=== PATIENT | male | born 1960 | race Caucasian/White ===

== ENCOUNTER → 2020-03-09 | Outpatient (CLI) | payer BC ==
--- NOTE | 2020-03-09 17:36 | P.STRESS ---
- Stress Test Note Stress Test Results/Findings: Exam Performed: stress test Exam Date: 03/09/20 Reason for Exam: Chest Pain Height: 5 ft 10 in Weight: 87.09 kg Protocol: Miguel Stage: 4 Duration of Exercise: 11:30 Resting Heart Rate: 46 Resting Blood Pressure: 135/94 Maximum Achieved Heart Rate: 150 Maximum Achieved Blood Pressure: 212/87 85% PMHR: 135 100% PMHR: 159 METS: 12.1 Technologist Comment: Stress Test Results/Findings: Baseline heart rate 46 beats a minute, Baseline blood pressure 135/94 mmHg Patient exercised on a Miguel protocol for 11 minutes 30 seconds achieving a peak heart rate of 150 beats a minute. Hypertensive response to exercise. Blood pressure 212/87 mmHg There was no ECG ms for ischemia No arrhythmias are noted Impression Excellent exercise capacity Hypertensive response No ECG evidence of ischemia No arrhythmias
== END | disposition home or self-care (01) ==
LOC: RADNMMAIN 02-27 08:37
PROVIDERS: ATTEND Family Medicine
DX: I10 Essential (primary) hypertension (principal); E78.5 Hyperlipidemia, unspecified
CPT/HCPCS: 93017

== ENCOUNTER → 2020-03-11 | Outpatient (CLI) | payer BC ==
--- NOTE | 2020-03-12 20:00 | ECHOF ---
Referral Reason:[id number] (primary) hypertension E78.5 MEASUREMENTS -------- HEIGHT: 177.8 cm WEIGHT: 87.1 kg BP: 154/82 IVSd: 1.1 cm (0.6 - 1.1) LVIDd: 4.4 cm (3.9 - 5.3) LVPWd: 1.1 cm (0.6 - 1.1) IVSs: 1.7 cm LVIDs: 3.1 cm LVPWs: 1.7 cm LA Diam: 3.5 cm (2.7 - 3.8) RVIDd: 3.3 cm (< 3.3) LAESV Index (A-L): 21.02 ml/m Ao Diam: 3.3 cm (2.0 - 3.7) AV Cusp: 1.9 cm (1.5 - 2.6) EPSS: 0.7 cm MV E Chris: 0.95 m/s MV DecT: 210 ms MV A Chris: 0.81 m/s MV E/A Ratio: 1.18 RAP: 5.00 mmHg RVSP: 23.52 mmHg MV EF SLOPE: 86.79 mm/s (70 - 150) MV EXCURSION: 16.22 mm (> 18.000) FINDINGS -------- Sinus rhythm. This was a technically good study. The left ventricular size is normal. There is borderline concentric left ventricular hypertrophy. Overall left ventricular systolic function is normal with, an EF between 60 - 65 %. The right ventricle is mildly enlarged. Normal LA size by volume 22+/-6 ml/m2. The right atrium is normal in size. Interatrial and interventricular septum intact. The aortic valve is trileaflet and appears structurally normal. Mild mitral regurgitation is present. Mild tricuspid regurgitation present. Right ventricular systolic pressure is normal at < 35 mmHg. There is no pulmonic regurgitation present. The aortic root size is normal. Normal inferior vena cava with normal inspiratory collapse consistent with estimated right atrial pre ssure of 5 mmHg. There is no pericardial effusion. CONCLUSIONS -------- 1. The left ventricular size is normal. 2. There is borderline concentric left ventricular hypertrophy. 3. Overall left ventricular systolic function is normal with, an EF between 60 - 65 %. 4. The right ventricle is mildly enlarged. 5. Normal LA size by volume 22+/-6 ml/m2. 6. The aortic valve is trileaflet and appears structurally normal. 7. Mild mitral regurgitation is present. 8. Mild tricuspid regurgitation present. 9. There is no pericardial effusion. STOCKROOM COORDINATOR: MARK Rojas
== END | disposition home or self-care (01) ==
LOC: RADECHMAIN 10:45
PROVIDERS: ATTEND Family Medicine
DX: E78.5 Hyperlipidemia, unspecified (principal); I10 Essential (primary) hypertension
CPT/HCPCS: 93306

== ENCOUNTER → 2020-12-15 | Outpatient (CLI) | payer BC ==
--- NOTE | 2020-12-15 18:43 | CONS ---
CONSULTATION REASON FOR CONSULTATION: Sleep apnea. 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 This was a concern that was raised by his who has noted that the patient is stopping breathing on multiple occasions at night and he is having loud snoring. The patient has occasional arousing from loud snoring. He does have nocturia. He does have some occasional grinding of the teeth. He wakes up with a dry mouth and he is waking up tired and sleepy during the day. He is going to bed around 9 p.m., wakes up at 6 a.m. in the morning. Averaging around 7 hours of sleep. His current Saint Joe score is at 12. He prefers to sleep on his side, although he is able to sleep on his back. He wakes up at least 2-3 times in the middle of the night and he is able to generate sleep without any major difficulties. No substance abuse. Drinks a few beers at nighttime. No recent weight gain. No sleep walking. No sleep talking. No new violent behavior at nighttime while asleep. No nocturnal anxiety or panic attacks. He has occasional anxiety. PAST MEDICAL HISTORY: Positive for hypertension, hyperlipidemia and acid reflux. PAST SURGICAL HISTORY: Negative. DRUG ALLERGIES: Not known. OUTPATIENT MEDICATION LIST: Includes omeprazole 20 mg p.o. daily, Lexapro 10 mg p.o. daily, amlodipine 10 mg p.o. daily, Lipitor 1 tablet a day. SOCIAL HISTORY: Nonsmoker. No history of alcohol. No history of IV drugs. FAMILY HISTORY: Two of his brothers have obstructive sleep apnea and they have been treated with CPAP therapy. REVIEW OF SYSTEMS: Fourteen-point review of system was done and positive findings are mentioned in the history of present illness. Of significance is the absence of any sleepwalking and sleep talking and the absence of any panic attacks. No palpitations. He has occasional heartburn, not occurring at nighttime. No sleep attacks. No history of any motor vehicle accident because of feeling drowsy or sleepy. No sleep paralysis. No hallucinations. No cataplexy. PHYSICAL EXAMINATION: VITAL SIGNS: BP is 149/84, pulse 73, respirations 16, temperature 97.3, saturation 97% on room air. BMI 29.1. Saint Joe score is 12. Neck size 17.5 inches. Weight is 202 pounds. GENERAL APPEARANCE: Calm and comfortable. Head: Atraumatic, normocephalic. NECK: Supple. Mallampati class 4. Uvula is not seen. Soft palate is quite anterior and low. Tongue is slightly enlarged. LUNGS: Clear to auscultation. HEART: Heart sounds are regular rate and rhythm. Normal S1, S2. No S3, S4. No murmurs. ABDOMEN: Soft, nontender. No organomegaly. EXTREMITIES: No edema. No cyanosis or clubbing. IMPRESSION: 1. Suspect obstructive sleep apnea, currently under investigation. 2. Loud snoring along with witnessed apneas. 3. Chronic fatigue and sleepiness Saint Joe score of 12. 4. Hypertension. 5. Hyperlipidemia. 6. Acid reflux. PLAN: 1. Home sleep study. 2. Encourage weight loss. 3. Sleep hygiene measures are in general appropriate. 4. We will review the sleep study results and will make further recommendations based on the findings. 5. He is interested in CPAP therapy should sleep apnea has been demonstrated in his sleep study. MMODL / IJN: [id number] /
== END ==
LOC: SLEEP 13:44
PROVIDERS: ATTEND Internal Medicine Critical Care Medicine
DX: G47.30 Sleep apnea, unspecified (principal); I10 Essential (primary) hypertension; K21.9 Gastro-esophageal reflux disease without esophagitis; E78.5 Hyperlipidemia, unspecified; R53.82 Chronic fatigue, unspecified
CPT/HCPCS: 99211

== ENCOUNTER → 2021-06-22 | Outpatient (CLI) | payer BC ==
--- NOTE | 2021-06-22 17:42 | PN ---
PROGRESS NOTE Sixto is 60 with a recent diagnosis of severe obstructive sleep apnea. I diagnosed this patient with having severe LANDON with an AHI of 49 and diagnosis was established based on home sleep study that was done on 12/29/2020. This is my first encounter with the patient post treatment. The patient is feeling great. He is feeling much more refreshed. His sleep quality has improved considerably while being on CPAP therapy and continues to benefit from the treatment. He is currently using a ResMed APAP unit with a pressure minimum of 5, maximum of 20 and he is using a HighlightCam Vitera medium-sized fullface mask. He is currently humidity at 5 and he has a regular tubing. Based on a 30-day compliance data, the patient has been averaging around 8.7 hours of CPAP use per night and CPAP use for more than 4 hours is 100%. Average pressure delivered by the machine is at 12.7. Leak is in order of 2 L/minute and AHI is down to 4.5. Central apnea-hypopnea index is at 3.2. He has no complaints. His Hat[place]chubbee score is currently at 4. REVIEW OF SYSTEMS: Fourteen-point review of system was done. No other complaints otherwise for now. His snoring has subsided. He is waking up refreshed and alert. No nocturia. PHYSICAL EXAMINATION: Vital signs: BP is 143/77, pulse 58, respirations 16, temperature 97.5. Hat[place]chubbee score is at 4. Saturation 97% on room air. Weight is 210. General appearance: Calm and comfortable. Head is atraumatic, normocephalic. Neck: Supple no nodes supple. There is no JVD. No goiter or neck masses. Lungs: Clear to auscultation. Heart: Heart sounds are regular rate and rhythm. Normal S1, S2. No S3, S4. No murmurs. Abdomen: Soft, nontender. No organomegaly. Extremities: No edema. No cyanosis or clubbing. Neurologic: Awake and alert. There is no focal neurological deficits. IMPRESSION: 1. Severe symptomatic obstructive sleep apnea with an AHI of 49. The patient has been successfully treated with an APAP. 2. Hypersomnia, improved. Hatchechubbee score is down to 4. 3. Loud snoring, recovered. 4. Hypertension. 5. Hyperlipidemia. 6. Acid reflux. PLAN: 1. Continue APAP therapy at the same level of pressure. 2. Offer the patient a climate line and gradually drop the humidity. 3. Compliance data was checked. Numbers look great. Average pressure delivered by the machine around 12.7 and the patient will be kept on an APAP mode. 4. Continue Vitera medium-size full face mask and see me back in a year's time in followup, earlier if needed. Treatment is successful and the patient is quite content and happy with the progress and clinical response. MMODL / IJN: [id number] / RYAN
== END ==
LOC: SLEEP 14:00
PROVIDERS: ATTEND Internal Medicine Critical Care Medicine
DX: G47.33 Obstructive sleep apnea (adult) (pediatric) (principal); I10 Essential (primary) hypertension; E78.5 Hyperlipidemia, unspecified; K21.9 Gastro-esophageal reflux disease without esophagitis

== ENCOUNTER → 2022-12-06 | Outpatient (CLI) | payer BC ==
--- NOTE | 2022-12-06 16:33 | P.PN ---
Progress Note - Text Progress Note Date: 12/06/22 58-year-old male patient coming in to see me regarding his obstructive sleep apnea. The patient is known to me and the patient is known to have severe LANDON with an AHI of 49 and the patient remains on CPAP therapy. The patient is utilizing APAP pressures of 5/20 cm of water. The patient is reminded very compliant to CPAP therapy. He continues to use a Simplus small size full facemask. I checked the compliance data on this patient and based on elevated has been collected between 11/06/2022 and 12/05/2022, the patient has been averaging around 6 hours and 55 minutes of CPAP use per night. His compliancy for the machine usage has been in the order of 100%. He has achieved more than 4 hours 97% of the time. Based on the data, his AHI is down to 1.9. Leaks are minimal at 4 L/m and his P90 5 percentile pressure is in order of 12.7 cm of water. No congestion heart failure. No myocardial infarction. No strokes. No cardiac arrhythmias. No major hypersomnia or sleepiness. Is still working in construction. BP is 150/77, pulse is 54, respirations 16 and the temperature is 98.1 and the weight is 189 pounds. Canon score is at 8 The patient appeared well nourished and normally developed. Vital signs as documented. Head exam is unremarkable. No scleral icterus or corneal arcus noted. Neck is without jugular venous distension, thyromegaly, or carotid bruits. Carotid upstrokes are brisk bilaterally. Lungs are clear to auscultation and percussion. Cardiac exam reveals the PMI to be normally sized and situated. Rhythm is regular. First and second heart sounds normal. No murmurs, rubs or gallops. Abdominal exam reveals normal bowel sounds, no masses, no organomegaly and no aortic enlargement. Extremities are nonedematous and both femoral and pedal pulses are normal.Examination of the skin revealed no evidence of significant rashes, suspicious appearing nevi or other concerning lesions.Neurologically, the patient is awake and alert and the patient does not have any focal neurological deficit. Cranial nerves are essentially intact. Assessment Obstructive sleep apnea, severe with an AHI of 49, undergoing successful CPAP therapy Chronic hypersomnia, improved Hypertension Hyperlipidemia Acid reflux Plan Continue CPAP therapy same pressure settings pressures of 5/20 cm of water Patient has lost weight Maintain good sleep hygiene measures Maintain regular sleep schedule Continue to follow CPAP supplies were refilled
== END ==
LOC: SLEEP 15:34
PROVIDERS: ATTEND Internal Medicine Critical Care Medicine
DX: G47.33 Obstructive sleep apnea (adult) (pediatric) (principal); I10 Essential (primary) hypertension; E78.5 Hyperlipidemia, unspecified; K21.9 Gastro-esophageal reflux disease without esophagitis; Z99.89 Dependence on other enabling machines and devices
CPT/HCPCS: 99212

== ENCOUNTER 2023-12-19 17:22 | Observation (INO) | payer MEDICARE, BC ==
[2023-12-19 17:28] VITALS: TEMP 97.7
[2023-12-19 17:50] LABS: Basophils % (A) 1 %; Eosinophils # (A) 0.2 k/uL (0-0.7); Eosinophils % (A) 2 %; HCT 47.2 % (39.0-53.0); Lymphocytes % (A) 30 %; MCH 32.1 pg (25.0-35.0); MCHC 31.8 g/dL (31.0-37.0); MCV 100.9 fL (80.0-100.0); Mean Platelet Volume 7.5; Monocytes # (A) 0.7 k/uL (0-1.0); Monocytes % (A) 10 %; Neutrophils # (A) 3.6 k/uL (1.3-7.7); Neutrophils % (A) 54 %; Platelet Count 263 k/uL (150-450); RBC 4.67 m/uL (4.30-5.90); RDW 12.4 % (11.5-15.5); WBC 6.6 k/uL (3.8-10.6)
[2023-12-19 18:01] LABS: ALT 33 U/L (4-49); AST 28 U/L (17-59); African American GFR (CKD) >90 (>60 ml/min/1.73 sqM); Albumin 4.2 g/dL (3.5-5.0); Alkaline Phosphatase 87 U/L (38-126); Anion Gap 5 mmol/L; Blood Urea Nitrogen 20 mg/dL (9-20); Calcium 8.9 mg/dL (8.4-10.2); Carbon Dioxide 29 mmol/L (22-30); Chloride 107 mmol/L (98-107); Glucose 102 mg/dL (74-99); Non-African American GFR(CKD) 89 (>60 ml/min/1.73 sqM); Potassium 4.8 mmol/L (3.5-5.1); Sodium 141 mmol/L (137-145); Total Bilirubin 0.5 mg/dL (0.2-1.3); Total Protein 7.2 g/dL (6.3-8.2)
[2023-12-19 18:04] LABS: Partial Thromboplastin Time 23.6 sec (22.0-30.0); Prothrombin Time 10.7 sec (10.0-12.5)
--- NOTE | 2023-12-19 18:12 | XR ---
EXAMINATION TYPE: XR chest 2V DATE OF EXAM: 12/19/2023 COMPARISON: None HISTORY: 63-year-old male with chest pain TECHNIQUE: PA and lateral views FINDINGS: Heart normal size. Aorta and pulmonary vasculature within normal limits. Mild central peribronchial c uffing. No consolidation or pleural effusion. IMPRESSION: Consider bronchitis or asthma. Otherwise, no acute process seen.
--- NOTE | 2023-12-19 18:50 | ED ---
General Adult HPI - General Chief complaint: Chest Pain Stated complaint: Chest Pain,Sob Time Seen by Provider: 12/19/23 18:35 Source: patient, RN notes reviewed, old records reviewed Mode of arrival: ambulatory Limitations: no limitations - History of Present Illness Initial comments: 63-year-old male with past medical history significant for high blood pressure high cholesterol. Patient states for the last week he has been having some discomfort in his chest and his back. Patient states it radiates down his arm a little bit. Patient states he is also noticed occasionally being somewhat short of breath. Patient does not describe it as sharp or severe but states it is pretty constant it will fluctuate in intensity throughout the week. Patient is not associated with exertion. Patient denies any fever chills or cough. Patient denies any abdominal pain patient has nausea vomiting diarrhea. Patient denies diaphoresis. Patient [place] any swelling to legs or calf tenderness. - Related Data Allergies Allergy/AdvReac Type Severity Reaction Status Date / Time No Known Allergies Allergy Verified 12/19/23 17:25 Review of Systems ROS Statement: Those systems with pertinent positive or pertinent negative responses have been documented in the HPI. ROS Other: All systems not noted in ROS Statement are negative. Past Medical History Past Medical History: GERD/Reflux, Hyperlipidemia, Hypertension Past Surgical History: No Surgical Hx Reported Smoking Status: Never smoker Past Alcohol Use History: None Reported Past Drug Use History: None Reported General Exam - General Exam Comments Initial Comments: GENERAL: Patient is well-developed and well-nourished. Patient is nontoxic and well- hydrated and is in mild distress. ENT: Neck is soft and supple. No significant lymphadenopathy is noted. Oropharynx is clear. Moist mucous membranes. Neck has full range of motion without eliciting any pain. EYES: The sclera were anicteric and conjunctiva were pink and moist. Extraocular movements were intact and pupils were equal round and reactive to light. Eyelids were unremarkable. PULMONARY: Unlabored respirations. Good breath sounds bilaterally. No audible rales rhonchi or wheezing was noted. CARDIOVASCULAR: There is a regular rate and rhythm without any murmurs gallops or rubs. ABDOMEN: Soft and nontender with normal bowel sounds. SKIN: Skin is clear with no lesions or rashes and otherwise unremarkable. NEUROLOGIC: Patient is alert and oriented x3. Cranial nerves II through XII are grossly intact. Motor and sensory are also intact. Normal speech, volume and content. Symmetrical smile. MUSCULOSKELETAL: Normal extremities with adequate strength and full range of motion. LYMPHATICS: No significant lymphadenopathy is noted PSYCHIATRIC: Normal psychiatric evaluation. Limitations: no limitations Course Vital Signs 12/19/23 12/19/23 17:23 18:20 Temperature 97.7 F Pulse Rate 59 L 56 L Respiratory 20 18 Rate Blood Pressure 194/81 154/96 O2 Sat by Pulse 99 100 Oximetry Medical Decision Making - Medical Decision Making EKG is interpreted by myself. EKG shows a sinus bradycardia 51 bpm parables 160 QRS 154 QT interval is 482 QTc is 458. Patient EKG shows a right bundle branch block. Was pt. sent in by a medical professional or institution (, PA, DIRECTOR BIOMEDICAL ENGINEERING, urgent care, hospital, or retirement...) When possible be specific @ -No Did you speak to anyone other than the patient for history (EMS, parent, family, police, friend...)? What history was obtained from this source @ -No Did you review nursing and triage notes (agree or disagree)? Why? @ -I reviewed and agree with nursing and triage notes Were old charts reviewed (outside hosp., previous admission, EMS record, old EKG, old radiological studies, urgent care reports/EKG's, retirement records)? Report findings @ -No old charts were reviewed Differential Diagnosis (chest pain, altered mental status, abdominal pain women, abdominal pain men, vaginal bleeding, weakness, fever, dyspnea, syncope, headache, dizziness, GI bleed, back pain, seizure, CVA, palpatations, mental health, musculoskeletal)? @ -Differential Chest Pain: Stable Angina, Unstable Angina, STEMI, NSTEMI Aortic Dissection, Pneumothorax, Musculoskeletal, Esophageal Spasm GERD, Cholecystitis, Pancreatitis, Zoster, this is not meant to be an all-inclusive list. EKG interpreted by me (3pts min.). @ -As above X-rays interpreted by me (1pt min.). @ -Chest x-ray shows no acute pulm CT interpreted by me (1pt min.). @ -90 U/S interpreted by me (1pt. min.). @ -None done What testing was considered but not performed or refused? (CT, X-rays, U/S, labs)? Why? @ -None What meds were considered but not given or refused? Why? @ -None Did you discuss the management of the patient with other professionals (professionals i.e. DrKaro, PA, DIRECTOR BIOMEDICAL ENGINEERING, lab, RT, psych nurse, psychiatric social worker supervisor, wire winding machine operator, teacher, driver's license reviewing officer, counseling case manager)? Give summary @ -I spoke with Dr. Zamudio patient initially was can leave AMA but decided to stay. Was smoking cessation discussed for >3mins.? @ -No Was critical care preformed (if so, how long)? @ -No Were there social determinants of health that impacted care today? How? (Homelessness, low income, unemployed, alcoholism, drug addiction, transportation, low edu. Level, literacy, decrease access to med. care, intermediate, rehab)? @ -No Was there de-escalation of care discussed even if they declined (Discuss DNR or withdrawal of care, Hospice)? DNR status @ -No What co-morbidities impacted this encounter? (DM, HTN, Smoking, COPD, CAD, Cancer, CVA, ARF, Chemo, Hep., AIDS, mental health diagnosis, sleep apnea, morbid obesity)? @ -None Was patient admitted / discharged? Hospital course, mention meds given and route, prescriptions, significant lab abnormalities, going to OR and other pertinent info. @ -Patient continued to have chest pain throughout his stay. Patient's lab work came back within normal range. Dr. Zamudio was contacted and he agreed to admit the patient admit the patient with admitting orders and consulted cardiology. Patient got an aspirin as well as Nitropaste and will stay overnight Undiagnosed new problem with uncertain prognosis? @ -No Drug Therapy requiring intensive monitoring for toxicity (Heparin, Nitro, Insulin, Cardizem)? @ -No Were any procedures done? @ -No Diagnosis/symptom? @ -Chest pain Acute, or Chronic, or Acute on Chronic? @ -Acute Uncomplicated (without systemic symptoms) or Complicated (systemic symptoms)? @ -Complicated Side effects of treatment? @ -No Exacerbation, Progression, or Severe Exacerbation? @ -No Poses a threat to life or bodily function? How? (Chest pain, USA, MO, pneumonia, PE, COPD, DKA, ARF, appy, cholecystitis, CVA, Diverticulitis, Homicidal, Suicidal, threat to staff... and all critical care pts) @ -Yes this could lead to an MO and endorgan dysfunction or - Lab Data Result diagrams: 05/14/24 17:26 12/19/23 17:26 Lab Results 12/19/23 12/19/23 12/19/23 Range/Units 17:26 17:26 17:26 WBC 6.6 (3.8-10.6) k/uL RBC 4.67 (4.30-5.90) m/uL Hgb 15.0 (13.0-17.5) gm/dL Hct 47.2 (39.0-53.0) % MCV 100.9 H (80.0-100.0) fL MCH 32.1 (25.0-35.0) pg MCHC 31.8 (31.0-37.0) g/dL RDW 12.4 (11.5-15.5) % Plt Count 263 (150-450) k/uL MPV 7.5 Neutrophils % 54 % Lymphocytes % 30 % Monocytes % 10 % Eosinophils % 2 % Basophils % 1 % Neutrophils # 3.6 (1.3-7.7) k/uL Lymphocytes # 2.0 (1.0-4.8) k/uL Monocytes # 0.7 (0-1.0) k/uL Eosinophils # 0.2 (0-0.7) k/uL Basophils # 0.0 (0-0.2) k/uL PT 10.7 (10.0-12.5) sec INR 1.0 (<1.2) APTT 23.6 (22.0-30.0) sec Sodium 141 (137-145) mmol/L Potassium 4.8 (3.5-5.1) mmol/L Chloride 107 (98-107) mmol/L Carbon Dioxide 29 (22-30) mmol/L Anion Gap 5 mmol/L BUN 20 (9-20) mg/dL Creatinine 0.90 (0.66-1.25) mg/dL Est GFR (CKD-EPI)AfAm >90 (>60 ml/min/1.73 sqM) Est GFR (CKD-EPI)NonAf 89 (>60 ml/min/1.73 sqM) Glucose 102 H (74-99) mg/dL Calcium 8.9 (8.4-10.2) mg/dL Magnesium 2.0 (1.6-2.3) mg/dL Total Bilirubin 0.5 (0.2-1.3) mg/dL AST 28 (17-59) U/L ALT 33 (4-49) U/L Alkaline Phosphatase 87 (38-126) U/L Troponin I (0.000-0.034) ng/mL Total Protein 7.2 (6.3-8.2) g/dL Albumin 4.2 (3.5-5.0) g/dL 12/19/23 Range/Units 17:26 WBC (3.8-10.6) k/uL RBC (4.30-5.90) m/uL Hgb (13.0-17.5) gm/dL Hct (39.0-53.0) % MCV (80.0-100.0) fL MCH (25.0-35.0) pg MCHC (31.0-37.0) g/dL RDW (11.5-15.5) % Plt Count (150-450) k/uL MPV Neutrophils % % Lymphocytes % % Monocytes % % Eosinophils % % Basophils % % Neutrophils # (1.3-7.7) k/uL Lymphocytes # (1.0-4.8) k/uL Monocytes # (0-1.0) k/uL Eosinophils # (0-0.7) k/uL Basophils # (0-0.2) k/uL PT (10.0-12.5) sec INR (<1.2) APTT (22.0-30.0) sec Sodium (137-145) mmol/L Potassium (3.5-5.1) mmol/L Chloride (98-107) mmol/L Carbon Dioxide (22-30) mmol/L Anion Gap mmol/L BUN (9-20) mg/dL Creatinine (0.66-1.25) mg/dL Est GFR (CKD-EPI)AfAm (>60 ml/min/1.73 sqM) Est GFR (CKD-EPI)NonAf (>60 ml/min/1.73 sqM) Glucose (74-99) mg/dL Calcium (8.4-10.2) mg/dL Magnesium (1.6-2.3) mg/dL Total Bilirubin (0.2-1.3) mg/dL AST (17-59) U/L ALT (4-49) U/L Alkaline Phosphatase (38-126) U/L Troponin I <0.012 (0.000-0.034) ng/mL Total Protein (6.3-8.2) g/dL Albumin (3.5-5.0) g/dL Disposition Clinical Impression: Chest pain Disposition: ADMITTED IP TO THIS HOSP Is patient prescribed a controlled substance at d/c from ED?: No Referrals: Bertin Zamudio DO [Primary Care Provider] - 1-2 days Time of Disposition: 19:52
[2023-12-19] MEDS ORDERED: NITROGLYCERIN SL TABS 0.4 MG TAB SUBLINGUAL PRN (20:40)
[2023-12-19] MEDS: ASPIRIN 325 MG TAB PO STA (20:41)
[2023-12-19] MEDS: ASPIRIN 81 MG PO STA (21:00)
[2023-12-20] MEDS: NITROGLYCERIN OINT 1 INCH/GM PACKET TOPICAL SCH (01:54)
[2023-12-20] MEDS: amLODIPine 5 MG TAB PO STA (09:10)
[2023-12-20] MEDS: ASPIRIN 325 MG TAB PO SCH (09:10)
[2023-12-20 09:54] VITALS: RESP 18
[2023-12-20 10:41] LABS: Chol/HDL Ratio 2.66 Ratio; LDL Cholesterol,Calculated 79.2 mg/dL (0.0-131.0)
--- NOTE | 2023-12-20 10:59 | P.CRDCN ---
History of Present Illness Consult date: 12/20/23 Consult reason: chest pain History of present illness: History of present illness: This is a 63-year-old male with past medical history of hypertension, hyperlipidemia, gastroesophageal reflux disease. He gives history that about a week ago he was having mid back pain between his shoulder blades and then it seemed to come around to the front of his chest. It is a tightness. Nothing seems to make it worse or better but it sometimes more intense. He has the chest pain all the time. He was able to golf last and this did not exacerbate his pain. He denies having any palpitations, no lightheadedness or dizziness, no lower extremity edema. He denies cough and no fever or chills. He has had no blood in his stools or urine. No nausea or vomiting. No abdominal pain. No history of stroke or seizures. Patient is a non-smoker. He does drink caffeine every morning and he drinks 2-3 beers per day. EKG sinus rhythm with right bundle branch block Chest x-ray: Consider bronchitis or asthma. No acute process. Laboratory studies: WBC 6.6, hemoglobin 15. Electrolytes and renal function are normal. Glucose 102. Troponins negative x 3. Magnesium 2.0. Triglycerides 100, cholesterol 159, LDL 79, HDL 59. Home cardiac medications: Amlodipine/benazepril 1 at bedtime, atorvastatin 10 mg at bedtime. Echocardiogram performed 03/11/2020 revealed EF 60 to 65%, mild mitral digitation, mild tricuspid regurgitation. Exercise stress test performed 03/12/2020 revealed excellent exercise capacity, hypertensive response. No EKG evidence of ischemia. No arrhythmias. Review Of Systems: At the time of my exam: CONSTITUTIONAL: Denies fever or chills. HEENT: Denies blurred vision, vision changes, or eye pain. Denies hemoptysis CARDIOVASCULAR: Denies chest pain. Denies orthopnea. Denies PND. Denies palpitations RESPIRATORY: Denies shortness of breath. GASTROINTESTINAL: Denies abdominal pain. Denies nausea or vomiting. HEMATOLOGIC: Denies bleeding disorders. GENITOURINARY: Denies any blood in urine. SKIN: Denies pruitis. Denies rash. Physical examination: Gen: This is a 63-year-old male appears to be in no acute distress VS: reviewed, blood pressure 167/88, heart rate 61, pulse ox 99% on room air. HEENT: Head is atraumatic, normocephalic. Pupils equal, round. Sclerae is anicteric. NECK: Supple. No JVD. LUNGS: Clear to auscultation. No wheezes or rhonchi. No intercostal retractions. HEART: Regular rate and rhythm. No murmur. ABDOMEN: Soft No tenderness. EXTREMITIES: No pedal edema. No calf tenderness. NEUROLOGICAL: Patient is awake, alert and oriented x3. Assessment: Atypical chest pain, acute coronary syndrome ruled out Hypertension Hyperlipidemia Gastroesophageal reflux disease Right bundle branch block Plan: Resume patient's home cardiac medications Patient given additional dose of amlodipine this morning as he did not receive his medications last evening Obtain stress echocardiogram today Obtain 2-D echocardiogram and Doppler study to assess cardiac structure and function If testing is unremarkable, patient is cleared for discharge home and may follow-up in the office in 1 to 2 weeks. Thank you kindly for this consultation. Nurse practitioner note has been reviewed, I agree with documented findings and plan of care. Patient was seen and examined. Past Medical History Past Medical History: GERD/Reflux, Hyperlipidemia, Hypertension Past Surgical History: No Surgical Hx Reported Smoking Status: Never smoker Past Alcohol Use History: None Reported Past Drug Use History: None Reported Medications and Allergies Home Medications Medication Instructions Recorded Confirmed Type Atorvastatin [Lipitor] 10 mg PO HS 12/19/23 12/19/23 History Omeprazole 20 mg PO DAILY PRN 12/19/23 12/19/23 History amLODIPine BESYLATE/BENAZEPRIL 1 cap PO HS 12/19/23 12/19/23 History [amLODIPine BESYLATE/BENAZEPRIL 5-10 mg] Allergies Allergy/AdvReac Type Severity Reaction Status Date / Time No Known Allergies Allergy Verified 12/19/23 21:10 Physical Exam Vitals: Vital Signs Temp Pulse Resp BP Pulse Ox 12/20/23 06:00 49 L 16 118/83 95 12/20/23 05:00 51 L 16 116/83 12/20/23 01:00 52 L 19 110/65 98 12/20/23 00:00 58 L 18 136/86 98 12/19/23 23:00 67 17 146/91 98 12/19/23 22:00 58 L 18 150/91 98 12/19/23 21:30 55 L 18 145/93 98 12/19/23 20:00 56 L 18 147/88 100 12/19/23 19:30 53 L 16 139/95 99 12/19/23 19:00 54 L 18 151/83 99 12/19/23 18:20 56 L 18 154/96 100 12/19/23 17:23 97.7 F 59 L 20 194/81 99 Intake and Output 12/19/23 12/20/23 12/20/23 22:59 06:59 14:59 Other: Weight 89.358 kg Results 12/19/23 17:26 12/19/23 17:26 Cardiac Enzymes 12/19/23 12/19/23 12/19/23 Range/Units 17:26 17:26 21:22 AST 28 (17-59) U/L Troponin I <0.012 <0.012 (0.000-0.034) ng/mL 12/19/23 Range/Units 23:52 AST (17-59) U/L Troponin I <0.012 (0.000-0.034) ng/mL Coagulation 12/19/23 Range/Units 17:26 PT 10.7 (10.0-12.5) sec APTT 23.6 (22.0-30.0) sec CBC 12/19/23 Range/Units 17:26 WBC 6.6 (3.8-10.6) k/uL RBC 4.67 (4.30-5.90) m/uL Hgb 15.0 (13.0-17.5) gm/dL Hct 47.2 (39.0-53.0) % Plt Count 263 (150-450) k/uL Comprehensive Metabolic Panel 12/19/23 Range/Units 17:26 Sodium 141 (137-145) mmol/L Potassium 4.8 (3.5-5.1) mmol/L Chloride 107 (98-107) mmol/L Carbon Dioxide 29 (22-30) mmol/L BUN 20 (9-20) mg/dL Creatinine 0.90 (0.66-1.25) mg/dL Glucose 102 H (74-99) mg/dL Calcium 8.9 (8.4-10.2) mg/dL AST 28 (17-59) U/L ALT 33 (4-49) U/L Alkaline Phosphatase 87 (38-126) U/L Total Protein 7.2 (6.3-8.2) g/dL Albumin 4.2 (3.5-5.0) g/dL Current Medications Generic Name Dose Route Start Last Admin Trade Name Freq PRN Reason Stop Dose Admin Aspirin 325 mg 12/20/23 09:00 Aspirin 325 Mg Tab PO DAILY TERRY Nitroglycerin 0.4 mg 12/19/23 20:40 Nitroglycerin Sl Tabs 0.4 Mg Tab SUBLINGUAL Q5M PRN Chest Pain Nitroglycerin 1 inch 12/20/23 00:00 12/20/23 06:12 Nitroglycerin Oint 1 Inch/Gm Packet TOPICAL Not Given Q6HR TERRY Intake and Output 12/19/23 12/20/23 12/20/23 22:59 06:59 14:59 Other: Weight 89.358 kg 12/19/23 17:26 12/19/23 17:26
--- NOTE | 2023-12-20 12:04 | P.HPIM ---
History of Present Illness H&P Date: 12/20/23 Chief Complaint: Chest pain History and Physical and Discharge Summary: History and physical and discharge summary this is a pleasant 63-year-old gentleman with past medical history significant for gastroesophageal reflux disease, hypertension, hyperlipidemia, presented initially to the urgent care and directed to the ER with complaints of mid back pain between his shoulder blades over the last week that progressed, wrapping around to the left chest and midsternum, accompanied by bloating and fatigue. Denies lightheadedness dizziness or focal deficits. Denies shortness of breath, cough,chills or fevers. Denies nausea or vomiting. Reports his back ache is ongoing. Recently retired in April 2023, continues to be active, plays golf. reports he last played on which did not trigger worsening of his symptoms and is scheduled to play this afternoon in a league. Troponins negative x 3, EKG reported sinus rhythm with right bundle branch block. Chest x-ray reported mild central peribronchial cuffing, no consolidation or pleural effusion. Afebrile normal WBC. Hemoglobin 15, platelets 263, MCV 100.9, INR 1, chemistry panel unremarkable. Review of Systems ROS Statement: Those systems with pertinent positive or pertinent negative responses have been documented in the HPI. ROS Other: All systems not noted in ROS Statement are negative. Past Medical History Past Medical History: GERD/Reflux, Hyperlipidemia, Hypertension Past Surgical History: No Surgical Hx Reported Smoking Status: Never smoker Past Alcohol Use History: None Reported Past Drug Use History: None Reported Medications and Allergies Home Medications Medication Instructions Recorded Confirmed Type Atorvastatin [Lipitor] 10 mg PO HS 12/19/23 12/19/23 History Omeprazole 20 mg PO DAILY PRN 12/19/23 12/19/23 History amLODIPine BESYLATE/BENAZEPRIL 1 cap PO HS 12/19/23 12/19/23 History [amLODIPine BESYLATE/BENAZEPRIL 5-10 mg] Allergies Allergy/AdvReac Type Severity Reaction Status Date / Time No Known Allergies Allergy Verified 12/19/23 21:10 Physical Exam Vitals: Vital Signs Temp Pulse Resp BP Pulse Ox 12/20/23 09:09 61 18 167/88 99 12/20/23 06:00 49 L 16 118/83 95 12/20/23 05:00 51 L 16 116/83 12/20/23 01:00 52 L 19 110/65 98 12/20/23 00:00 58 L 18 136/86 98 12/19/23 23:00 67 17 146/91 98 12/19/23 22:00 58 L 18 150/91 98 12/19/23 21:30 55 L 18 145/93 98 12/19/23 20:00 56 L 18 147/88 100 12/19/23 19:30 53 L 16 139/95 99 12/19/23 19:00 54 L 18 151/83 99 12/19/23 18:20 56 L 18 154/96 100 12/19/23 17:23 97.7 F 59 L 20 194/81 99 Intake and Output 12/19/23 12/20/23 12/20/23 22:59 06:59 14:59 Other: Weight 89.358 kg PHYSICAL EXAM: VITAL SIGNS: [As above] GENERAL: Alert and oriented x 3, sitting up on stretcher, no acute distress HEENT: Normocephalic, atraumatic ,conjunctivae normal. eyes normal. NECK: Supple, no JVD. No thyroid enlargement. No LNs CARDIOVASCULAR: S1, S2 regular.No murmur. RESPIRATION: Unlabored, equal air entry ,CTA. ABDOMEN: Soft, nondistended, nontender . No guarding. no masses palpable. No ascites, No hepatosplenomegaly.Bowel sounds heard. LEGS: No edema. no swelling NERVOUS SYSTEM: Cranial N 2-12 grossly normal. Moves all 4 limbs. Diffuse weakness No focal deficits. Strength and sensation grossly intact.. Skin: Warm and dry, no rash Results CBC & Chem 7: 12/19/23 17:26 12/19/23 17:26 Labs: Abnormal Lab Results - Last 24 Hours (Table) 12/19/23 12/19/23 Range/Units 17:26 17:26 MCV 100.9 H (80.0-100.0) fL Glucose 102 H (74-99) mg/dL Assessment and Plan Assessment: Chest pain, acute coronary syndrome ruled out Right bundle branch block Gastroesophageal reflux disease Hypertension Hyperlipidemia Plan: Continue on current medication regimen ,monitoring and symptomatic sobia atment. 2D echo pending. Evaluated by cardiology and patient is scheduled for stress test. Patient will be discharged home today in a stable condition with guarded prognosis pending stress test results, final DC recommendations and clearance as per cardiology. Discharge Medication List Atorvastatin [Lipitor] 10 mg PO HS 12/19/23 [History] Omeprazole 20 mg PO DAILY PRN 12/19/23 [History] amLODIPine BESYLATE/BENAZEPRIL [amLODIPine BESYLATE/BENAZEPRIL 5-10 mg] 1 cap PO HS 12/19/23 [History] The impression and plan of care has been dictated as directed. : I performed a history and examination of this patient, discussed the same with the dictator. I agree with the dictator's note ,documented as a scribe. Any additional findings or plans will be noted.
--- NOTE | 2023-12-20 12:38 | CA ---
Stress Echo Report [place] Age: 63 Gender: M : 1960 Exam Date: 12/20/2023 11:38 Exam Location: [facility] Ht (in): 70 Wt (lb): 197 Ordering Physician: Anna Juarez Referring Physician: [id number] Rn Faculty: Stacia Eduardo RDCS Technologist Procedure CPT: Indication: Chest Pain ICD-9 Codes: Rhythm: Patient History: CP, JESSICA, HTN, CHOL, FAMILY HX Cardiac Medications: SEE CHART Medications in past 24 hours: Contrast: Stress Results Protocol: Miguel Total dose(mL): Exercise Duration (min:sec): 10:[address] Depression (mm): Angina Score: Cody Score: METS: 12.1 Resting HR: 55 Resting BP: 145 / 71 Peak HR: 149 Peak BP: 240 / 54 Max Predicted HR: 155 96 % Max Predicted HR Target HR: 132 Double Product: [id number] Stress Summary: The patient's target heart rate was achieved BP Response: Reason for Termination: Reached target heart rate or work-load Cardiac Symptoms: ASYMPTOMATIC ECG Analysis Resting ECG: Normal sinus rhythm, Right bundle branch block Stress ECG: No abnormal ST/T wave changes with exercise Arrhythmia: None Echo Analysis Resting Echo: Normal resting echocardiogram. Peak Echo Analysis: Normal treadmill stress echocardiogram. MEASUREMENTS (Male/Female) Normal Values CONCLUSIONS 1. Good exercise tolerance 2. Nondiagnostic electrocardiographic stress testing secondary to baseline EKG abnormality with hypertensive response to exercise 3. Normal electrocardiographic stress echocardiogram with no evidence of stress-induced ischemia Dr. Yumi James MD (Electronically Signed) Final Date: 20 Dec 2023 12:37
--- NOTE | 2023-12-20 12:54 | CA ---
Transthoracic Echo Report Name: [place]o [place] Age: 63 Gender: M : 1960 Exam Date: 12/20/2023 12:01 Exam Location: [facility] Ht (in): 70 Wt (lb): 197 Ordering Physician: Anna Juarez Attending/Referring Phys: [id number], Larry Stump Shooter Stacia Eduardo RDCS Procedure CPT: Indications: LVF Cardiac Hx: Technical Quality: Good Contrast 1: Total Dose (mL): Contrast 2: Total Dose (mL): MEASUREMENTS (Male / Female) Normal Values 2D ECHO LV Diastolic Diameter PLAX 4.4 cm 4.2 - 5.9 / 3.9 - 5.3 cm LV Systolic Diameter PLAX 3.1 cm IVS Diastolic Thickness 1.1 cm 0.6 - 1.0 / 0.6 - 0.9 cm LVPW Diastolic Thickness 1.3 cm 0.6 - 1.0 / 0.6 - 0.9 cm LV Relative Wall Thickness 0.5 RV Internal Dim ED PLAX 3.4 cm LA Systolic Diameter LX 4.0 cm 3.0 - 4.0 / 2.7 - 3.8 cm LV Diastolic Volume MOD 4C 116.7 cm??? LV Systolic Volume MOD 4C 45.3 cm??? LV Ejection Fraction MOD 4C 61.2 % LV Cardiac Index MOD 4C 2761.7 cm???/min???m??? LV Diastolic Length 4C 9.7 cm LV Systolic Length 4C 7.4 cm LV Diastolic Volume MOD 2C 94.2 cm??? LV Systolic Volume MOD 2C 40.8 cm??? LV Ejection Fraction MOD 2C 56.7 % LV Cardiac Index MOD 2C 2065.3 cm???/min???m??? LV Diastolic Length 2C 9.3 cm LV Systolic Length 2C 7.3 cm LA Volume 47.8 cm??? 18 - 58 / 22 - 52 cm??? LA Volume Index 22.5 cm???/m??? 16 - 28 cm???/m??? M-MODE Aortic Root Diameter MM 3.6 cm AV Cusp Separation MM 2.5 cm DOPPLER AV Peak Velocity 147.4 cm/s AV Peak Gradient 8.7 mmHg MV Area PHT 3.2 cm??? Mitral E Point Velocity 71.0 cm/s Mitral A Point Velocity 98.4 cm/s Mitral E to A Ratio 0.7 MV Deceleration Time 235.6 ms TR Peak Velocity 271.5 cm/s TR Peak Gradient 29.5 mmHg Right Ventricular Systolic Press 32.7 mmHg FINDINGS Left Ventricle Left ventricular ejection fraction is estimated at 55-60 %. Left ventricular cavity size normal. Mildly increased septal wall thickness. Right Ventricle Mild right ventricular dilatation. Right ventricular systolic pressure within normal limits. Right Atrium Normal right atrial size. No right atrial thrombus or mass seen. Left Atrium Normal left atrial size. No left atrial thrombus or mass present. Mitral Valve Structurally normal mitral valve. No mitral stenosis, or prolapse.trace mitral regurgitation. Aortic Valve Trileaflet aortic valve. No aortic valve stenosis or regurgitation. Tricuspid Valve Structurally normal tricuspid valve. Mild tricuspid regurgitation. Pulmonic Valve Pulmonic valve not well visualized. No pulmonic regurgitation. Pericardium No pericardial effusion. No pleural effusion. Aorta Normal size aortic root and proximal ascending aorta. CONCLUSIONS 1. Normal left ventricular size and systolic function 2. Mild tricuspid and trace mitral regurgitation Previewed by: Dr. Yumi James MD (Electronically Signed) Final Date: 20 Dec 2023 12:53
[2023-12-20 13:37] VITALS: BP 147/85; PULSE 92
[2023-12-20] MEDS ORDERED: lisinopriL 10 MG TAB PO SCH (21:00)
[2023-12-20] MEDS ORDERED: amLODIPine 5 MG TAB PO SCH (21:00)
[2023-12-20] MEDS ORDERED: ATORVASTATIN 10 MG TAB PO SCH (21:00)
== END 2023-12-20 13:21 | disposition home or self-care (01) ==
LOC: EC 17:22 → 6NMEDSUR 20:41
PROVIDERS: ADMIT Family Medicine; ATTEND Family Medicine
DX: R07.89 Other chest pain (principal); I45.10 Unspecified right bundle-branch block; K21.9 Gastro-esophageal reflux disease without esophagitis; I10 Essential (primary) hypertension; E78.5 Hyperlipidemia, unspecified; Z79.899 Other long term (current) drug therapy
CPT/HCPCS: 99285; 36415; 93005 ×2; 93306; 93351; 80061; 80053; 83735; 84484; 85025; 85610; 85730; 71046; G0378 ×2